=== PATIENT | female | born 1950 | race Caucasian/White ===

== ENCOUNTER 2017-11-22 09:02 | Emergency (ER) | payer OTHER ==
[2017-11-22 09:10] VITALS: TEMP 97.9; BMI 31.4
[2017-11-22] MEDS ORDERED: SODIUM CHLORIDE 0.9% 1000 ML INFUS.BAG IV ONE (09:12)
[2017-11-22] MEDS ORDERED: ONDANSETRON 4 MG/2 ML VIAL IVPUSH ONE (09:12)
[2017-11-22] MEDS ORDERED: FAMOTIDINE 20 MG/50 ML IVPB 20 MG/50 ML MG IVPB ONE ×2 (09:12→09:38)
--- NOTE | 2017-11-22 09:12 | PDOC ---
History of Present Illness - General History Source: Patient Exam Limitations: No Limitations - History of Present Illness Initial Comments: 11/22/17 09:39 The patient is a 67 year old female with a significant PMH of diabetes, HTN, and HLD who presents to the emergency department with abdominal pain with associated nausea and nonbloody, nonbilious vomiting since 3PM yesterday. Patient states she had tea and half a banana prior to the onset of her symptoms. Patients last bowel movement was last night. Patient is also complaining of subjective fevers and chills. Patient also noticed mild chest discomfort and acidity to the back of her throat. Patient reports that over the last few days she has noticed throat acidity after eating. Patient denies any history of GERD. Patient reports having an endoscopy 6 months ago, which was normal. The patient denies shortness of breath, headache and dizziness. Denies diarrhea and constipation. Denies dysuria, frequency, urgency and hematuria. Allergies: NKA Past surgical history: hysterectomy Social history: No reported alcohol, drug or cigarette use. PCP: Dr. Ritter <Chantale Tompkins - Last Filed: 11/22/17 09:47> <Tomasa Shipman - Last Filed: 11/22/17 14:01> <Soumya Newton - Last Filed: 11/22/17 16:24> - General Chief Complaint: Pain, Acute Stated Complaint: NAUSEA/VOMITING Time Seen by Provider: 11/22/17 09:11 Past History <Chantale Tompkins - Last Filed: 11/22/17 09:47> <Tomasa Shipman - Last Filed: 11/22/17 14:01> - Past Medical History Anemia: (hypertension diabetes) COPD: No Diabetes: Yes HTN: Yes Hypercholesterolemia: Yes - Suicide/Smoking/Psychosocial Hx Smoking Status: No Smoking History: Never smoked Number of Cigarettes Smoked Daily: 0 <Somuya Newton - Last Filed: 11/22/17 16:24> - Past Medical History Allergies/Adverse Reactions: Allergies Allergy/AdvReac Type Severity Reaction Status Date / Time No Known Allergies Allergy Verified 11/22/17 09:04 Home Medications: Ambulatory Orders Albuterol Sulfate Inhaler - [Ventolin Hfa Inhaler -] 1 - 2 inh PO Q4H PRN Amlodipine Besylate [Norvasc -] 5 mg PO DAILY 11/22/17 Cetirizine HCl [Zyrtec -] 10 mg PO DAILY 11/22/17 Cholecalciferol (Vitamin D3) [Vitamin D3] 50,000 unit PO WEEKLY 11/22/17 Icosapent Ethyl [Vascepa] 1 gm PO BID 11/22/17 Levothyroxine [Synthroid -] 25 mcg PO DAILY 11/22/17 Lovastatin 10 mg PO DAILY 11/22/17 Montelukast Na [Singulair -] 10 mg PO HS 11/22/17 Ondansetron [Zofran Odt -] 4 mg SL TID PRN #15 od.tablet 11/22/17 Valsartan [Diovan] 160 mg PO DAILY 11/22/17 Vortioxetine Hydrobromide [Trintellix] 20 mg PO DAILY 11/22/17 metFORMIN XR [Glucophage *Xr* -] 500 mg PO DAILY@0700 11/22/17 Review of Systems - Review of Systems Able to Perform ROS?: Yes Comments:: 11/22/17 09:49 ADULT ROS GENERAL/CONSTITUTIONAL: No fever or chills. No weakness. HEAD, EYES, EARS, NOSE AND THROAT: No change in vision. No ear pain or discharge. No sore throat. GASTROINTESTINAL: No nausea, vomiting, diarrhea or constipation. GENITOURINARY: No dysuria, frequency, or change in urination. CARDIOVASCULAR: No chest pain or shortness of breath. RESPIRATORY: No cough, wheezing, or hemoptysis. MUSCULOSKELETAL: No joint or muscle swelling or pain. No neck or back pain. SKIN: No rash NEUROLOGIC: No headache, vertigo, loss of consciousness, or change in strength/ sensation. ENDOCRINE: No increased thirst. No abnormal weight change. HEMATOLOGIC/LYMPHATIC: No anemia, easy bleeding, or history of blood clots. ALLERGIC/IMMUNOLOGIC: No hives or skin allergy. <Chantale Tompkins - Last Filed: 11/22/17 09:47> *Physical Exam - Vital Signs Last Vital Signs Temp Pulse Resp BP Pulse Ox 97.9 F 91 H 20 153/77 99 11/22/17 09:05 11/22/17 09:05 11/22/17 09:05 11/22/17 09:05 11/22/17 09:05 - Physical Exam Comments: 11/22/17 09:49 ADULT PHYSICAL EXAM Constitutional: Awake, alert, oriented. No acute distress. Neck: Supple. Full ROM. No lymphadenopathy. Cardiovascular: Regular rate. Regular rhythm. S1, S2 regular. Distal pulses are 2+ and symmetric. Pulmonary/Chest: No evidence of respiratory distress. Clear to auscultation bilaterally No wheezing, rales or rhonchi. Abdominal: (+) Epigastric tenderness. Soft and non-distended. No rebound, guarding or rigidity. No organomegaly. No palpable masses. Good bowel sounds. Back: No CVA tenderness. Musculoskeletal: No edema. No cyanosis. No clubbing. Full range of motion in all extremities. No calf tenderness. Radial/pedal pulses are intact and 2+ bilaterally. Skin: Skin is warm and dry. No petechiae. No purpura. Neurological: Alert and oriented to person, place, and time. Cranial nerves II -XII are grossly intact. Normal speech. Strength is grossly symmetric. No sensory deficits. Psychiatric: Good eye contact. Normal interaction, affect and behavior. <Chantale Tompkins - Last Filed: 11/22/17 09:47> - Vital Signs Last Vital Signs Temp Pulse Resp BP Pulse Ox 97.9 F 91 H 20 153/77 99 11/22/17 09:05 11/22/17 09:05 11/22/17 09:05 11/22/17 09:05 11/22/17 09:05 <Tomasa Shipman - Last Filed: 11/22/17 14:01> - Vital Signs Last Vital Signs Temp Pulse Resp BP Pulse Ox 97.9 F 91 H 20 153/77 99 11/22/17 09:05 11/22/17 09:05 11/22/17 09:05 11/22/17 09:05 11/22/17 09:05 <Soumya Newton - Last Filed: 11/22/17 16:24> Heart Score/ECG Review - ECG Intrepretation Comment:: 11/22/17 10:29 sinus at 68, nl axis, nl interval, no acute st/t wave findings <Soumya Newton - Last Filed: 11/22/17 16:24> ED Treatment Course - LABORATORY CBC & Chemistry Diagram: 11/22/17 09:20 11/22/17 09:20 - Medications Given in the ED: ED Medications Discontinued Medications Generic Name Dose Route Start Last Admin Trade Name Tan PRN Reason Stop Dose Admin Ondansetron HCl 4 mg 11/22/17 09:12 11/22/17 09:31 Zofran Injection IVPUSH 11/22/17 09:13 4 mg ONCE ONE Administration Sodium Chloride 1,000 ml 11/22/17 09:12 11/22/17 09:30 Normal Saline - IV 11/22/17 09:13 1,000 ml ONCE ONE Administration <Chantale Tompkins - Last Filed: 11/22/17 09:47> - LABORATORY CBC & Chemistry Diagram: 11/22/17 09:20 11/22/17 09:20 - ADDITIONAL ORDERS Additional order review: Laboratory Results 11/22/17 11/22/17 09:20 09:20 Sodium 137 Potassium 3.4 L Chloride 102 Carbon Dioxide 25 Anion Gap 9 BUN 10 Creatinine 0.6 Creat Clearance w eGFR > 60 Random Glucose 138 H Calcium 9.2 Magnesium 2.2 Total Bilirubin 0.6 AST 39 H ALT 49 Alkaline Phosphatase 148 H Creatine Kinase 122 Troponin I < 0.02 Total Protein 7.4 Albumin 3.7 Lipase 118 TSH Cancelled 0.02 L 11/22/17 09:20 RBC 5.36 H MCV 84.2 MCHC 33.4 RDW 13.8 MPV 8.4 Neutrophils % 67.9 Lymphocytes % 26.9 D Monocytes % 4.2 Eosinophils % 0.2 D Basophils % 0.8 - RADIOLOGY Radiograph Interpretation: Chest x-ray Impression: No evidence of active pulmonary disease. Reported by: Antolin Wahl MD 11/22/17 12:13 US Abdomen Impression: No sonographic evidence of acute pathology Diffuse hepatic steatosis is noted There has been no obvious interval change in comparison to a prior US study of . Reported by: Mohamud Samuels MD 11/22/17 13:08 US Bladder Impression: Status post hysterectomy. Both ovaries were not visualized. Partial distension of the urinary bladder w/out wall thickening. Bilateral ureteral jets were identified. Patient could not void. Collection is see in the RLQ. Reported By: Bk Jacob MD 11/22/17 [id number] - Medications Given in the ED: ED Medications Discontinued Medications Generic Name Dose Route Start Last Admin Trade Name Tan PRN Reason Stop Dose Admin Al Hydroxide/Mg Hydroxide 30 ml 11/22/17 09:36 11/22/17 09:41 Mylanta Oral Suspension - PO 11/22/17 09:37 30 ml ONCE ONE Administration Famotidine/Sodium Chloride 20 mg in 50 mls @ 100 mls/hr 11/22/17 09:12 09:41 Pepcid 20 Mg Premixed Ivpb - IVPB 11/22/17 09:41 100 mls/hr ONCE ONE Administration Ondansetron HCl 4 mg 11/22/17 09:12 11/22/17 09:31 Zofran Injection IVPUSH 11/22/17 09:13 4 mg ONCE ONE Administration Potassium Chloride 20 meq 11/22/17 10:39 11/22/17 11:21 K-Dur - PO 11/22/17 10:40 20 meq ONCE ONE Administration Sodium Chloride 1,000 ml 11/22/17 09:12 11/22/17 09:30 Normal Saline - IV 11/22/17 09:13 1,000 ml ONCE ONE Administration <Tomasa Shipman - Last Filed: 11/22/17 14:01> - LABORATORY CBC & Chemistry Diagram: 11/22/17 09:20 11/22/17 09:20 <Soumya Newton - Last Filed: 11/22/17 16:24> Medical Decision Making - Medical Decision Making 11/22/17 10:30 a/p: 67yo female with epigastric pain, n/v -pt underwent EGD testing 6m ago -pt with ttp epigastric -scheduled for outpt pelvic us and RUQ us -will send labs, ekg, cxr, u/s, trop x 2 given hx of DM, HTN -will medicate for n/v - also suspect acid reflux, but will r/o atypical chest pain with hx of risk factors -will monitor and reassess 11/22/17 10:38 dr. echeverria is GI Dr. Ritter is PMD 11/22/17 14:39 pt with a fluid collection on ultrasound to the RLQ - will obtain ct imaging 11/22/17 16:20 addendum to ultrasound - pt without fluid collection ct without acute findings some pelvic lymph nodes that will need outpt follow up discussed all imaging pt stable for d/c to home <Soumya Newton - Last Filed: 11/22/17 16:24> *DC/Admit/Observation/Transfer - Attestations Scribe Attestion: 11/22/17 09:49 Documentation prepared by Chantale Tompkins, acting as biomedical engineer for Soumya Newton DO. <Chantale Tompkins - Last Filed: 11/22/17 09:47> <Tomasa Shipman - Last Filed: 11/22/17 14:01> - Discharge Dispostion Decision to Admit order: No - Attestations Physician Attestion: 11/22/17 16:23 I, Dr. Soumya Newton DO, attest that this document has been prepared under my direction and personally reviewed by me in its entirety. I further attest, that it accurately reflects all work, treatment, procedures and medical decision -making performed by me. <Soumya Newton - Last Filed: 11/22/17 16:24> Diagnosis at time of Disposition: Abdominal pain, Pelvic lymphadenopathy - Discharge Dispostion Disposition: HOME Condition at time of disposition: Stable - Prescriptions Prescriptions: Ondansetron [Zofran Odt -] 4 mg SL TID PRN #15 od.tablet PRN Reason: Nausea - Referrals Referrals: Rock Ritter MD [Staff Physician] - Agustin Echeverria MD [Staff Physician] - Ramsey Vyas MD [Staff Physician] - - Patient Instructions Printed Discharge Instructions: DI for Abdominal Pain-Adult, DI for Lymphadenopathy Additional Instructions: Please follow up with your PMD. Please also follow up with the senior adults director/ oncologist for further evaluation of your enlarged lymph nodes. Please follow up with your GI specialist. Please return to the ED with any further concerns or complaints. Print Language: ROMANIAN
[2017-11-22] MEDS ORDERED: ONDANSETRON 4 MG/2 ML VIAL ONE (09:16)
[2017-11-22] MEDS ORDERED: MAG HYDROX/AL HYDROX/SIMETH 30 ML UNIT-DOSE CUP PO ONE (09:36)
[2017-11-22] MEDS ORDERED: MAG HYDROX/AL HYDROX/SIMETH 30 ML UNIT-DOSE CUP ONE (09:38)
[2017-11-22 09:41] LABS: BASO % 0.8 % (0-2.0); EOS % 0.2 % (0-4.5); HEMATOCRIT 45.2 % (32.4-45.2); HEMOGLOBIN 15.1 GM/dL (10.7-15.3); LYMPH % 26.9 % (8-40); MCH 28.1 pg (25.7-33.7); MCHC 33.4 g/dl (32.0-36.0); MEAN CELL VOLUME 84.2 fl (80-96); MEAN PLT VOLUME 8.4 fl (7.5-11.1); MONO % 4.2 % (3.8-10.2); NEUT % 67.9 % (42.8-82.8); PLATELET COUNT 240 K/MM3 (134-434); RBC 5.36 M/mm3 (3.60-5.2); RDW 13.8 % (11.6-15.6)
[2017-11-22 10:19] LABS: ALBUMIN 3.7 g/dl (3.4-5.0); ALK PHOS 148 U/L (45-117); ANION GAP 9 MMOL/L (8-16); BILIRUBIN,TOTAL 0.6 mg/dL (0.2-1); BLOOD UREA NITROGEN 10 mg/dL (7-18); CALCIUM 9.2 mg/dL (8.5-10.1); CHLORIDE 102 mmol/L (98-107); CO2 25 mmol/L (21-32); CREATININE 0.6 mg/dL (0.55-1.3); GLUCOSE,RANDOM 138 mg/dL (74-106); LIPASE 118 U/L (73-393); MAGNESIUM 2.2 mg/dL (1.8-2.4); POTASSIUM 3.4 mmol/L (3.5-5.1); SGOT/AST 39 U/L (15-37); SGPT/ALT 49 U/L (13-61); SODIUM 137 mmol/L (136-145); TOT PROT 7.4 g/dl (6.4-8.2)
[2017-11-22] MEDS ORDERED: POTASSIUM CHLORIDE TABS 20 MEQ TABLET.ER (FP) PO ONE ×2 (10:39→11:21)
--- NOTE | 2017-11-22 13:00 | EKG ---
Test Reason : Blood Pressure : / mmHG Vent. Rate : 068 BPM Atrial Rate : 068 BPM P-R Int : 160 ms QRS Dur : 080 ms QT Int : 404 ms P-R-T Axes : 046 -08 022 degrees QTc Int : 429 ms NORMAL SINUS RHYTHM POSSIBLE LEFT ATRIAL ENLARGEMENT BORDERLINE ECG NO PREVIOUS ECGS AVAILABLE Confirmed by FUENTES MCPHERSON, YULI ([id number]) on 11/22/2017 12:59:54 PM Referred By: Confirmed By:YULI DILL MD
[2017-11-22 16:36] VITALS: BP 155/73; PULSE 76
== END 2017-11-22 16:29 | disposition home or self-care (01) ==
LOC: JER 09:02
PROC: 3E0337Z Introduction of Electrolytic and Water Balance Substance into Peripheral Vein, Percutaneous Approach (ICD-10-PCS; principal; 2017-11-22)
PROC: 3E033GC Introduction of Other Therapeutic Substance into Peripheral Vein, Percutaneous Approach (ICD-10-PCS; 2017-11-22)
DX: R10.9 Unspecified abdominal pain (principal); R59.1 Generalized enlarged lymph nodes
CPT/HCPCS: 36415; 71045-TC-FY; 74177-TC; 76705-TC; 76856-TC; 80053; 82550; 82553; 83690; 83735; 84439; 84443; 84484; 85025; 93005; 93010; 96365; 96375; 99283-25; J7030

== ENCOUNTER → 2018-05-31 | Day surgery (SDC) | payer OTHER | LOC: JRADIR 08:09 ==

== ENCOUNTER → 2018-06-12 | Day surgery (SDC) | payer OTHER ==
--- NOTE | 2018-06-13 14:03 | PATH ---
Cytology Non-Gynecological Report Patient Name: GERI GAMA [facility]. Rec. #: [id number] /Age/Gender: 1950 (Age: 68) / F Account: [id number] Location: RADIOLOGY INTER Taken: 06/12/2018 Received: 06/12/2018 Reported: 06/13/2018 Physicians: Zaina Nunez M.D. Specimen(s) Received RIGHT LOBE THYROID FNA Clinical History Right thyroid lobe, 2.93 x 1.86 x 2.11 cm Final Diagnosis THYROID, RIGHT, FINE NEEDLE ASPIRATION: SATISFACTORY FOR EVALUATION. BETHESDA CLASS II: BENIGN. CYTOLOGIC FINDINGS ARE CONSISTENT WITH A BENIGN FOLLICULAR NODULE. SMALL FOLLICULAR CELLS, FEW MACROPHAGES, AND COLLOID PRESENT. Electronically Signed Geri Tejeda M.D. Gross Description Received are eight direct smears, four of which are air-dried and Diff-Quik stained, and four of which are alcohol fixed and Pap stained. Also received is 20 ml of bloody formalin from which one cellblock is prepared.
== END | disposition home or self-care (01) ==
LOC: JRADIR 07:18
PROVIDERS: ATTEND Internal Medicine Endocrinology, Diabetes & Metabolism
PROC: 0G9H3ZX Drainage of Right Thyroid Gland Lobe, Percutaneous Approach, Diagnostic (ICD-10-PCS; principal; 2018-06-12)
DX: E04.1 Nontoxic single thyroid nodule (principal)
CPT/HCPCS: 76942; 88173; 88305-TC